=== PATIENT | female | born 1965 | race Caucasian/White ===

== ENCOUNTER → 2017-03-07 | Outpatient (CLI) | payer OTHER ==
[~2017-03-07] MED LIST: ASPIRIN81 M2 PO; BLOOD GLUCOSE1 EAC1 MC; FLEXERIL10 MG PO; GLUCOTROL XL10 MG PO; HYDROCODON-ACE1 EAC7 PO; IBUPROFEN800 MG PO; LEVAQUIN PO; NEURONTIN300 MG PO; PANTOPRAZOLE SO40 MG PO; SYNTHROID0.05 MG; TRAMADOL HCL50 M2 PO
--- NOTE | ~2017-03-07 | CT57 ---
[facility] A Service of [facility] & [facility] RADIOLOGY TEXT RESULTS PATIENT: HANG EPPERSON LOCATION: [facility] : 65 UNIT #: [id number] AGE: [address]: Carla Nixon APRN SEX: F ORDER DR: [id number] [facility] [address] [place], [place] [address] [id number] O MR#: [id number] Acc #: [id number] NAME: HANG EPPERSON : 1965 SEX: F STUDY DATE/TIME: 03/07/2017 15:14 UNIT: [facility] ROOM: STUDY DESCRIPTION: CT Chest Wo Cont Attending Physician: Carla Nixon A.P.R.N. Referring Physician: Carla Nixon A.P.R.N. Ordering Physician: Carla Nixon A.P.R.N. Primary Care Physician: Tyler Hampton M.D. MEDICAL IMAGING REPORT This report is preliminary unless electronic signature is present EXAM High-resolution CT chest without contrast, 03/07/2017. HISTORY 51-year-old female with restrictive lung disease per referring physician history. Patient states shortness of breath for 2 months with cough. 1-1/2 pack per day smoking history. Diabetes. COMPARISON CT chest with contrast 10/14/2016. CT chest 02/27/2006. PA and lateral chest radiograph 10/14/2016. PROCEDURE 1 mm axial images were obtained at 10 mm increments through the chest without contrast, per high-resolution protocol. Prone imaging was performed through the lung bases. Expiratory phase imaging was obtained through the level of the arch, luli, and bases. Additional 5-mm helical images were obtained to account for respiratory motion degradation. Physician's history makes additional notation of history of adenopathy. This CT exam was performed with one or more of the following radiation dose reduction techniques: automatic exposure control, adjustment of mA and/or kV according to patient size, and iterative reconstruction. FINDINGS Right paramediastinal-right hilar soft tissue mass continues to enlarge. On today's examination, it measures 6.9 x 3.7 cm in the right mid to lower paratracheal region, compared to 7.0 x 3.2 cm on 10/14/2016. In this same location on the 2005 examination, a single enlarged paramediastinal lymph node measured about 2.0 x 1.1 cm. Right hilar mass or adenopathy today measures 3.7 x 2.9 cm compared to 3.0 x 2.5 cm on 10/14/2016. This mass encases the right upper lobe bronchus and bronchus intermedius, although the bronchi are not occluded. It creates mild mass effect upon the adjacent esophagus and trachea. The mass elevates the superior vena cava. [facility] A Service of [facility] RADIOLOGY TEXT RESULTS PATIENT: HANG EPPERSON LOCATION: [facility] : 65 UNIT #: [id number] AGE: [address]: Carla Nixon APRN SEX: F ORDER DR: It abuts the aortic arch. It extends anteriorly and slightly to the left of midline across the luli, and extends into the azygoesophageal recess abutting the esophagus. On today's examination, the azygoesophageal recess portion of the mass measures 2.9 x 2.4 cm, compared to 1.7 x 1.5 cm. Findings are consistent with malignancy until proven otherwise. There is an enlarged right supraclavicular lymph node measuring 2.2 x 3.6 cm. No axillary adenopathy is seen. High resolution images of the chest demonstrate no abnormal interstitial thickening or evidence of interstitial fibrosis. No evidence of air trapping on expiratory phase imaging. Diffuse hepatic steatosis. Nodular contour of the liver anteriorly consistent with the appearance of cirrhosis in the appropriate clinical context. Multiple gallstones without pericholecystic inflammation or biliary dilation. There are small right anterior cardiophrenic fat pad lymph nodes, the dominant measuring 7 x 10 mm, unchanged. Spleen remains enlarged, but probably stable at 15.8 cm. Adrenal glands normal. At approximately the T8-9 level, there is a slightly high density nodule projecting in the left paracentral region in the anterior thecal sac. It is thought most likely to represent a chronic partially calcified disc protrusion and it can be seen retrospectively on the 02/27/2006 CT chest. IMPRESSION 1. Right hilar-right paramediastinal mass encasing the right mainstem bronchus and right upper lobe bronchus and bronchus intermedius. The finding is consistent with the appearance of malignancy. Interval enlargement in comparison to both the 02/27/2006 and 10/14/2016 examinations. Transbronchial biopsy is recommended. 2. Important finding was called to the mortgage assistant working for Karen Nixon, nurse practitioner, prior to the time of this dictation, 03/07/2017 at 01:16 p.m. 3. Right supraclavicular bulky adenopathy consistent with duy metastatic disease. 4. No contralateral left lung nodules are identified. 5. Advanced cirrhotic liver morphology. Correlate clinically. 6. Stable splenomegaly. 7. Uncomplicated cholelithiasis. 8. Punctate nonobstructing left renal stone, not included in the body of the report. 9. Suspected chronic partially calcified disc protrusion at T8-9. No acute osseous abnormalities are identified. Dictated by... [facility]. [facility] A Service of [facility] RADIOLOGY TEXT RESULTS PATIENT: HANG EPPERSON LOCATION: [facility] : 65 UNIT #: [id number] AGE: [address]: Carla Nixon APRN SEX: F ORDER DR: Henna Melendez M.D. THIS IS AN ELECTRONICALLY VERIFIED REPORT Henna Melendez M.D. at 03/09/2017 7:04 AM MAGAN/judy TD: 03/08/2017 14:11 JOB #: [id number] MEDICAL IMAGING REPORT Page 1 of 1 COPY
== END | disposition home or self-care (01) ==
LOC: CCAT 14:45
DX: J98.4 Other disorders of lung (principal); R59.9 Enlarged lymph nodes, unspecified; R16.1 Splenomegaly, not elsewhere classified; K74.60 Unspecified cirrhosis of liver; K80.20 Calculus of gallbladder without cholecystitis without obstruction; N20.0 Calculus of kidney
CPT/HCPCS: 71250

== ENCOUNTER → 2017-03-15 | Day surgery (SDC) | payer OTHER ==
--- NOTE | ~2017-03-15 | OR ---
Unit #: [id number] #: [id number] Patient: HANG EPPERSON [id number] [address] [place], [place] [address] [id number] O MR#: [id number] NAME: HANG EPPERSON ROOM: Date of Procedure: 03/15/2017 Admission Date: 03/15/2017 Surgeon: Maldonado Maria M.D. : 1965 Attending Physician: Maldonado Maria M.D. Primary Care Physician: Tyler Hampton M.D. OPERATIVE REPORT PROCEDURE PERFORMED Flexible fiberoptic bronchoscopy. INDICATION FOR PROCEDURE Abnormal CAT scan with bulky adenopathy. FINDINGS Widened main luli, widened right upper lobe luli, but no definite endobronchial lesions seen. SEDATION MAC. Please see their notes for details. COMPLICATIONS Zero. CONDITION AFTER PROCEDURE Stable to recovery room. DESCRIPTION OF PROCEDURE The patient was brought to the endoscopy suite and monitored for heart rate, blood pressure, saturations, and end-tidal CO2. She was sedated with MAC. Anesthetized with 2% lidocaine in both nares, viscous lidocaine to both nares. Bronchoscope was introduced into her right naris without difficulty. Vocal cords were visualized. They were normal in configuration and motion, and anesthetized x2. Main trachea was intubated. Airways were anesthetized and visualized. All subsegments were identified. No endobronchial lesions were seen. She had widened main luli, markedly widened right upper lobe main luli. No definite endobronchial lesions were seen. She had transtracheal needle biopsy of her main luli x2. No core biopsy was obtained, but apparent good cytologic specimens were obtained and will be sent for evaluation. If negative, she may need bronchoscopy with EBUS. The bronchoscope was removed without difficulty, hemostasis was confirmed by observation. The patient was in good condition postprocedure. Dictated by... Maldonado Maria M.D. LUIS/brettl Unit #: [id number] #: [id number] Patient: HANG EPPERSON TD: 03/16/2017 02:44 JOB #: [id number] OPERATIVE REPORT Page 1 of 1 X Maldonado Maria MD PROCEDURE OPERATIVE NOTE
[2017-03-15 09:26] LABS: BASOPHIL# 0.1 X10e3 (0-0.3); BASOPHIL% 0.7 % (0-2.5); EOSINOPHIL# 0.1 X10e3 (0-0.7); EOSINOPHIL% 1.7 % (0.0-7.0); HEMATOCRIT 41.5 % (35.0-45.0); HEMOGLOBIN 14.2 gm/dL (12.0-16.0); LYMPHOCYTE# 1.9 X10e3 (1.0-3.5); LYMPHOCYTE% 25.2 % (17.0-45.0); MEAN CELL VOLUME 93.9 FL (83-96); MEAN CORPUSCULAR HEMOGLOBIN 32.2 PG (28-34); MEAN CORPUSCULAR HGB CONC 34.3 g/dL (30-36); MONOCYTE# 0.5 X10e3 (0-1.0); MONOCYTE% 7.1 % (3.0-12.0); NEUTROPHIL# 4.9 X10e3 (1.5-7.1); NEUTROPHIL% 65.3 % (40-75); PLATELET COUNT 175 X10e3 (140-420); RED BLOOD COUNT 4.42 X10e (3.90-5.30); RED CELL DISTRIBUTION WIDTH 12.6 % (11.0-15.5); WHITE BLOOD COUNT 7.5 X10e3 (4.0-10.5)
[2017-03-15 09:27] LABS: DIFF IND NO
[2017-03-15 09:43] LABS: INR 1.1; PROTHROMBIN TIME (PATIENT) 11.5 SECONDS (9.6-11.5)
== END | disposition home or self-care (01) ==
LOC: COPS 08:35
PROVIDERS: Internal Medicine
DX: R59.0 Localized enlarged lymph nodes (principal); R91.8 Other nonspecific abnormal finding of lung field; K21.9 Gastro-esophageal reflux disease without esophagitis; E11.9 Type 2 diabetes mellitus without complications; E66.9 Obesity, unspecified; F17.210 Nicotine dependence, cigarettes, uncomplicated; Z87.442 Personal history of urinary calculi; Z87.19 Personal history of other diseases of the digestive system; Z90.49 Acquired absence of other specified parts of digestive tract; Z90.89 Acquired absence of other organs; Z79.82 Long term (current) use of aspirin; Z79.899 Other long term (current) drug therapy
CPT/HCPCS: 85025; 85610; 85730; 87102; 87106; 87107; 87116; 87206; 88108; 88173; 88305; J0171; J2250

== ENCOUNTER → 2017-04-14 | Outpatient (CLI) | payer OTHER ==
--- NOTE | ~2017-04-14 | MR17 ---
[facility] A Service of [facility] RADIOLOGY TEXT RESULTS PATIENT: HANG EPPERSON LOCATION: [facility] : 65 UNIT #: [id number] AGE: [address]: Mell Gray MD SEX: F ORDER DR: [id number] [address] [address] [id number] O MR#: [id number] Acc #: [id number] NAME: HANG EPPERSON : 1965 SEX: F STUDY DATE/TIME: 04/14/2017 17:11 UNIT: [facility] ROOM: STUDY DESCRIPTION: MR Brain WWo Contrast Attending Physician: Mell Gray M.D., Ph.D. Referring Physician: Mell Gray M.D., Ph.D. Ordering Physician: Mell Gray M.D., Ph.D. Primary Care Physician: Tyler Hampton M.D. MRI CENTER REPORT This report is preliminary unless electronic signature is present. EXAM Brain MRI with and without contrast HISTORY Newly diagnosed lung cancer. Evaluate for brain malignancy suspected. TECHNIQUE Multiplanar imaging brain was performed with and without contrast. 20 mL of MultiHance was used. FINDINGS Diffusion-weighted images show no evidence of recent infarct. The routine brain images demonstrate atrophy with mild chronic ischemic changes in the periventricular deep white matter. Mild chronic ischemic changes are also seen in the mid delvin. Postcontrast imaging shows a 5 mm ring enhancing mass in the left frontal subcortex consistent with a metastatic lesion. There is no significant surrounding vasogenic edema. There is a punctate focus of enhancement in the right precentral gyrus, also consistent with metastasis. No other enhancing masses are seen. IMPRESSION 1. There are 2 enhancing lesions seen, both suspicious for metastatic disease, 1 in the left frontal subcortex and the other in the right frontal pre-central region, as described and measured above. 2. Atrophy with mild chronic ischemic changes around the ventricles and in the mid delvin. Dictated by... Carlos Rangel M.D. [facility] A Service of [facility] RADIOLOGY TEXT RESULTS PATIENT: HANG EPPERSON LOCATION: [facility] : 65 UNIT #: [id number] AGE: [address]: Mell Gray MD SEX: F ORDER DR: THIS IS AN ELECTRONICALLY VERIFIED REPORT Carlos Rangel M.D. at 04/15/2017 11:28 AM RLAntonieta/gabriela TD: 04/15/2017 09:58 JOB #: [id number] MRI CENTER REPORT Page 1 of 1
== END | disposition home or self-care (01) ==
LOC: SMRI 15:52
DX: C34.11 Malignant neoplasm of upper lobe, right bronchus or lung (principal); D64.9 Anemia, unspecified; G31.9 Degenerative disease of nervous system, unspecified
CPT/HCPCS: 70553; A9581

== ENCOUNTER → 2017-04-20 | Outpatient (CLI) | payer OTHER ==
--- NOTE | ~2017-04-20 | XA91 ---
[facility] A Service of [facility] & [facility] RADIOLOGY TEXT RESULTS PATIENT: HANG GEE LOCATION: [facility] : 65 UNIT #: [id number] AGE: [address]: Mell Gray MD SEX: F ORDER DR: [id number] [facility] [address] [place], [place] [address] [id number] O MR#: [id number] Acc #: [id number] NAME: HANG GEE : 1965 SEX: F STUDY DATE/TIME: 04/20/2017 8:15 UNIT: [facility] ROOM: STUDY DESCRIPTION: XA CVC Tunneled W Port Attending Physician: Mell Gray M.D., Ph.D. Referring Physician: Mell Gray M.D., Ph.D. Ordering Physician: Mell Gray M.D., Ph.D. Primary Care Physician: Tyler Hampton M.D. MEDICAL IMAGING REPORT This report is preliminary unless electronic signature is present EXAM MediPort placement under ultrasound and fluoroscopy HISTORY Lung cancer FINDINGS Procedure, attendant risks and options were discussed at length with Ms. Gee. She understands and wishes to proceed. Informed written consent was obtained. The patient was placed in the supine position in the angio suite. Right neck and right anterior chest wall was prepped with Chlorhexidine solution and subsequently sterilely draped. IV conscious sedation was administered consisting of IV Versed and Fentanyl. The patient was monitored by the IR nurse during the entire procedure. Initially the right IJ was addressed. Utilizing maximal sterile barrier technique and under ultrasound visualization and guidance and local anesthesia a micropuncture was performed and subsequently an 8 Uzbek delivery sheath was placed. Attention was then turned to the right anterior chest wall. A site was chosen. A horizontal incision was made approximately two finger breadths below the clavicle. A pocket was mildly dilated and subsequently flushed with saline. MediPort was sutured into the pocket utilizing 2-0 Vicryl suture. Catheter was tunneled to the right IJ site and subsequently trimmed to the appropriate length and deployed with the tip at the cavoatrial junction. The port was subsequently aspirated yielding blood and it was flushed with heparin solution. The subcutaneous tissues were closed with 3-0 Vicryl interrupted suture and the dermis closed with 4-0 mattress Monocryl suture. Dermabond was placed over each site. Final spot radiograph was obtained documenting placement. Permanent ultrasound image was also recorded. Total fluoroscopy time was 1.1 minute. Total estimated exposure 34 mGy air kerma standard. SUMMARY [facility] A Service of [facility] RADIOLOGY TEXT RESULTS PATIENT: HANG GEE LOCATION: [facility] : 65 UNIT #: [id number] AGE: [address]: Mell Gray MD SEX: F ORDER DR: Successful right-sided MediPort placed with the tip placed at the cavoatrial junction. Dictated by... Gaetano Gonzalez M.D. THIS IS AN ELECTRONICALLY VERIFIED REPORT Gaetano Gonzalez M.D. at 04/21/2017 4:26 PM ANA/wilfred TD: 04/20/2017 12:35 JOB #: [id number] MEDICAL IMAGING REPORT Page 1 of 1 COPY
[2017-04-20 07:29] LABS: HEMATOCRIT 43.8 % (35.0-45.0); HEMOGLOBIN 14.5 gm/dL (12.0-16.0); MEAN CELL VOLUME 96.5 FL (83-96); MEAN CORPUSCULAR HGB CONC 33.2 g/dL (30-36); MEAN PLATELET VOLUME 7.3 FL (6.5-11.5); RED BLOOD COUNT 4.53 X10e (3.90-5.30); RED CELL DISTRIBUTION WIDTH 12.7 % (11.0-15.5); WHITE BLOOD COUNT 7.9 X10e3 (4.0-10.5)
[2017-04-20 07:43] LABS: INR 1.1; PARTIAL THROMBOPLASTIN TIME 29.1 SECONDS (23.5-31.3); PROTHROMBIN TIME (PATIENT) 11.1 SECONDS (9.6-11.5)
== END | disposition home or self-care (01) ==
LOC: CIVR 07:00
PROVIDERS: Internal Medicine Hematology & Oncology
DX: Z45.2 Encounter for adjustment and management of vascular access device (principal); D64.9 Anemia, unspecified; C34.11 Malignant neoplasm of upper lobe, right bronchus or lung; F17.210 Nicotine dependence, cigarettes, uncomplicated; R94.2 Abnormal results of pulmonary function studies; E11.9 Type 2 diabetes mellitus without complications; Z79.84 Long term (current) use of oral hypoglycemic drugs; E66.9 Obesity, unspecified; Z68.42 Body mass index [BMI] 45.0-49.9, adult; R06.83 Snoring; Z79.899 Other long term (current) drug therapy
CPT/HCPCS: 36415; 76937; 77001; 85027; 85610; 85730; C1788; C1894; J0690; J1642; J2250; J3010

== ENCOUNTER 2017-05-18 21:11 | Inpatient (IN) | payer OTHER ==
--- NOTE | ~2017-05-18 | CR72 ---
[facility] A Service of [facility] & [facility] RADIOLOGY TEXT RESULTS PATIENT: HANG EPPERSON LOCATION: [facility] 327- : [birth year] UNIT #: [id number] AGE: [address]: Theodora Nickerson MD SEX: F ORDER DR: [id number] [facility] [place] [facility] [address] [place], [place] [address] [id number] I MR#: [id number] Acc #: [id number] NAME: HANG EPPERSON : 1965 SEX: F STUDY DATE/TIME: 05/18/2017 22:52 [facility] ROOM: [facility] STUDY DESCRIPTION: CR Chest Single View Portable Attending Physician: Gabby Strong M.D. Ordering Physician: Onel Sims D.O. Primary Care Physician: No Primary Care Physician MEDICAL IMAGING REPORT This report is preliminary unless electronic signature is present EXAM Chest portable, 05/18 at 2252 hours. INDICATIONS Shortness of air, cough and nausea for 3 days. History of lung cancer. FINDINGS AP portable chest is compared with 10/14/2016. Right side Port-A-Cath tip in the SVC. Again seen is extensive right paratracheal adenopathy. The lungs are clear. No pneumothorax. IMPRESSION Right paratracheal adenopathy consistent with the patient's known malignancy. No acute findings in the chest. Port-A-Cath tip in the SVC. Dictated by... Carlos Monsivais Jr., M.D. THIS IS AN ELECTRONICALLY VERIFIED REPORT Carlos Monsivais Jr., M.D. at 05/19/2017 11:24 AM RODY/keaton TD: 05/19/2017 06:09 JOB #: [id number] MEDICAL IMAGING REPORT Page 1 of 1 COPY
--- NOTE | ~2017-05-18 | HP ---
Unit #: [id number] #: [id number] Patient: HANG EPPERSON [id number] [address] [place], [place] [address] [id number] I MR#: [id number] NAME: HANG EPPERSON ROOM: 327 Age: 51 Sex: F Admission Date: 05/19/2017 : 1965 Attending Physician: Gabby Strong M.D. Primary Care Physician: No Primary Care Physician HISTORY AND PHYSICAL CHIEF COMPLAINT Intractable nausea, vomiting, diarrhea, urinary tract infection. HISTORY This pleasant 51-year-old female with metastatic small cell lung cancer, hypothyroidism, AODM, VILLAFANA, was admitted for intractable nausea, vomiting, and diarrhea. The patient underwent her first cycle of chemotherapy two weeks ago. Was well until two days ago when she developed intractable nonbloody nausea, vomiting, diarrhea with fevers, sweats and chills. Denied urinary symptoms with the above. She presented to this emergency department last evening tachycardic but otherwise with stable vital signs. Labs are notable for a chronic hyponatremia, white blood count of 23, and significant pyuria on urinalysis. Patient was treated with Protonix, Zofran, and currently is being bolused with IV fluids, and given 1 g of Rocephin. PAST MEDICAL HISTORY 1. Hyponatremia admitted 09/2016. 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 2. Small cell lung cancer with metastatic lesions to the brain on MRI scan. First cycle of chemotherapy two weeks ago. 3. Hypothyroidism. 4. GERD. 5. AODM with peripheral neuropathy. 6. VILLAFANA. 7. EGD and colonoscopy revealing a small hiatal hernia with chronic gastritis. Polyp was removed from the colon and diverticular disease was noted. 8. Appendectomy. 9. Back surgery. 10. Cyst removed from the right wrist. ALLERGIES No known drug allergies. HOME MEDICATIONS Glucotrol XL 10 mg daily; Protonix 40 mg daily; Neurontin 300 mg t.i.d.; aspirin 81 mg daily; ibuprofen 800 mg p.r.n.; Flexeril 10 mg b.i.d. p.r.n.; [place] 5/325 q.8 hours as needed; Synthroid 0.05 mg daily. FAMILY HISTORY Diabetes mellitus. Unit #: [id number] #: [id number] Patient: HANG EPPERSON SOCIAL HISTORY The patient lives with her girlfriend. She smokes 1/2 pack per day of tobacco and does not drink alcohol. REVIEW OF SYSTEMS Notable for nausea, vomiting, diarrhea. Fever, sweats and chills. Metastatic small cell lung cancer, hypothyroidism, GERD, diabetes, neuropathy, VILLAFANA, tobacco use and above mentioned surgeries. All other systems were reviewed and are otherwise negative. PHYSICAL EXAMINATION GENERAL: Pleasant, obese, 51-year-old female who looks to be uncomfortable. VITAL SIGNS: Temperature 98.6 pulse 121, respirations 18, blood pressure 112/72, O2 saturation 98% on room air. HEENT: Eyes - PERRLA, extraocular muscles are intact. Pharynx is benign with poor dentition. NECK: Supple without adenopathy or thyromegaly. CHEST: Clear. CARDIAC: Normal S1 and S2 without S3, S4, or murmur. ABDOMEN: Bowel sounds are present. No hepatosplenomegaly, tenderness or masses. EXTREMITIES: Without clubbing, cyanosis or edema. NEUROLOGIC: Patient is awake, alert and oriented. Cranial nerves are intact. Equal strength throughout. DIAGNOSTIC STUDIES LABORATORY STUDIES: Hematocrit is 44.3, white blood count is 23.9, normal platelet count, 7 bands noted, coags normal. SMA 12 - glucose 236, sodium 128, chloride 94, alk phos 121, normal lipase, negative troponin, lactic acid normal. Urinalysis - positive leukocyte esterase and protein with 2-5 red cells, enumerable white cells, 3+ bacteria, moderate squamous cells seen. IMAGING STUDIES: Chest x-ray adenopathy, which was noted to before. ASSESSMENT 1. Intractable nausea, vomiting and diarrhea. 2. Urinary tract infection. 3. Hyponatremia likely related to SIADH as opposed to hypovolemic, hyponatremia. 4. Small cell lung cancer with metastatic lesions to brain. 5. First cycle of chemotherapy was two weeks ago. 6. VILLAFANA. 7. AODM. 8. Hypothyroidism. 9. GERD. PLANS 1. Rocephin and recollect urine via straight cath as patient did have moderate squamous cells. 2. Stool cultures. 3. IV fluids and supportive treatment. 4. DVT prophylaxis. 5. Sliding scale insulin. 6. Notify patient's oncologist of admission. Unit #: [id number] #: [id number] Patient: HANG EPPERSON Dictated by Gabby Strong M.D. AML/ts TD: 05/19/2017 05:52 JOB #: [id number] CC: Mell Gray M.D., Ph.D. HISTORY AND PHYSICAL Page 1 of 1 X Gabby Strong MD X HISTORY AND PHYSICAL
--- NOTE | ~2017-05-18 | CO ---
Unit #: [id number] #: [id number] Patient: HANG EPPERSON [id number] [address] [address] [id number] I MR#: [id number] NAME: HANG EPPERSON ROOM: 327 Age: 51 Sex: F Admission Date: 05/19/2017 : 1965 Attending Physician: Theodora Nickerson M.D. Primary Care Physician: No Primary Care Physician CONSULTATION REPORT CHIEF COMPLAINT Cmhsr-suuf-ijfl cancer, RESIDENTIAL PROGRAM COORDINATOR mets, came with nausea and vomiting. HISTORY OF PRESENT ILLNESS This is a 51-year-old female who started smoking at the age of 18. She has been smoking about a half pack per day for almost 30 years. The patient also weighs about 130 kg. The patient was recently diagnosed with yyiis-abwa-estv cancer by Dr. Maria. I reviewed her PET scan done on 04/15/2017. There is a mediastinal mass, hilar mass, abdominal mass, right rectus muscle. There is also cirrhosis of the liver. MRI of the brain on 04/14/2017 showed left frontal mass and right frontal mass. The patient first received SBRT of her RESIDENTIAL PROGRAM COORDINATOR mass. She received one cycle of SPEECH AND LANGUAGE SPECIALIST 16 carboplatin. The patient came to the hospital with nausea and vomiting. The patient has suspected urinary tract infection and is receiving Rocephin. Presently she has a fever of 102. She is somewhat short of breath. PAST MEDICAL HISTORY 1. Hwmqf-sdcc-guix cancer with RESIDENTIAL PROGRAM COORDINATOR mets, status post radiation, now chemo. 2. Chronic obstructive pulmonary disease. 3. Cirrhosis of the liver. 4. Obesity. SURGICAL HISTORY 1. Back surgery. 2. Tonsillectomy. 3. Appendectomy. SOCIAL HISTORY As mentioned above. The patient has been smoking a half pack per day for 30 years. Denies alcohol abuse. She is on disability. FAMILY HISTORY Father of whdpz-klee-xqab cancer at the age of 63. He was a smoker. ALLERGIES Unit #: [id number] #: [id number] Patient: HANG EPPERSON No known drug allergies. Current medications 1. Rocephin. 2. Aspirin. 3. Protonix. 4. Lovenox. 5. Insulin. 6. Synthroid. 7. Neurontin. 8. Flexeril. 9. Zofran. REVIEW OF SYSTEMS CONSTITUTIONAL: Fever. No chills, no sweats, no weight loss. EYES: No visual symptoms. EARS, NOSE AND THROAT: There is no runny nose or sore throat or difficulty hearing. CARDIOVASCULAR: No chest pain. Shortness of breath. No palpitations. No orthopnea. No PND. RESPIRATORY: No cough. No wheezing. No hemoptysis. GASTROINTESTINAL: As mentioned above. GENITOURINARY: No urinary frequency, hesitancy or urgency. No blood in the urine. MUSCULOSKELETAL: No muscle or joint pain. NEUROLOGIC: No headache. No numbness or tingling. No weakness. No seizure. PSYCHIATRIC: No anxiety, depression or mood disturbance. ENDOCRINE: No excessive urination or thirst. DERMATOLOGIC: No rash or change in the skin. ALLERGIC/IMMUNOLOGIC: No symptoms. HEMATOLOGIC/LYMPHATIC: Denies any symptoms. PHYSICAL EXAMINATION GENERAL: Patient is comfortable. ECOG is 0. The patient is pleasant. VITAL SIGNS: Blood pressure 148/88, temperature 102.2, pulse 110, respiratory rate 20, O2 saturation 95% on 2 liters. HEENT: Moist mucosa. Pupils equally reactive to light. Extraocular muscles intact. Sclerae anicteric. No obvious bleeding from nasal mucosa or oral mucosa. Scalp normal. Hearing normal. NECK: No JVD. No lymphadenopathy. LYMPHATIC/HEMATOLOGIC: There is no palpable adenopathy in the neck, axilla or inguinal area. CARDIOVASCULAR: S1, S2. Regular rate and rhythm. No S3 or S4. RESPIRATORY: Chest symmetrical, normal. Clear to auscultation bilaterally. Occasional wheezes. No rales, no rhonchi. No dullness to percussion. ABDOMEN/GASTROINTESTINAL: Abdomen is soft, nontender, nondistended. No hepatosplenomegaly. EXTREMITIES: There is no clubbing, no cyanosis, no edema. No varicose veins. NEUROLOGICAL: Patient is alert, awake and oriented x3. Cranial nerves II-XII are intact. Sensory grossly intact. Motor is 4/5 in all four extremities. Gait is normal. Station is normal. Language is normal. Memory is normal. DTRs +2 in all four extremities. MUSCULOSKELETAL: No joint swelling. No bony tenderness. No muscle tenderness. SKIN: No petechiae, no rash, no ecchymosis. Unit #: [id number] #: [id number] Patient: HANG EPPERSON PSYCHIATRIC: No anxiety. No delusions or hallucinations. There is no agitation. Eye contact is normal. Affect is appropriate. There is no flight of ideas. DIAGNOSTIC DATA IMAGING: Single view chest on 05/18/2017, right paratracheal adenopathy consistent with the patient's known malignancy. No acute findings. LABORATORY: White blood cell count 22.9, hemoglobin 14.2, platelets 130, creatinine 0.9, LFTs are normal. ASSESSMENT This is a 51-year-old female with the followin. Cniuc-laat-gxml cancer. The patient has extensive hognt-dtek-ndbj cancer. She has also metastatic disease in the brain. She has bilateral lesions. She received radiation. She is receiving SPEECH AND LANGUAGE SPECIALIST 16 carboplatin. Once acute condition resolves, then she will proceed with the second cycle sometime next week. 2. Fever. Her fever is 102.2. I will get blood culture, start the patient on vancomycin and cefepime. I have already spoken with Dr. Maria. 3. Thrombocytopenia. It is mild and we will observe. Dictated by... Cain Gray M.D. MAGGY/doretha TD: 05/19/2017 08:50 JOB #: [id number] CONSULTATION REPORT Page 1 of 1 X Cain Gray MD CONSULTATION REPORT
--- NOTE | ~2017-05-18 | BMI ---
[facility] Nutrition Therapy DATE: 05/19/17 Patient: HANG LACEY ZHOU Physician: DELANEY Address: [address] [facility] Room/Bed: [address] [place] [address], Zip: [place] [address] Admit Date: 05/19/17 Date of : [birth year] Height: 5 6 Weight: 287 130.4 HIGH BMI NOTE: ANTHROPOMETRICS: HT: 66" WT: 130.4 KG BMI: 46.4 DIET: CONSISTENT CARBOHYDRATE RECOMMENDATIONS: 1. ADD A HEART HEALTHY DIET RESTRICTION IN ORDER TO PROMOTE GRADUAL WEIGHT LOSS TOWARDS A HEALTHY BMI. Respectfully, LUIS ROY RD, LD Food and Nutritional Services [facility] cc: client file
--- NOTE | ~2017-05-18 | CO ---
Unit #: [id number] #: [id number] Patient: HANG EPPERSON [id number] [address] [place], [place] [address] [id number] I MR#: [id number] NAME: HANG EPPERSON ROOM: 327 Age: 51 Sex: F Admission Date: 05/19/2017 : 1965 Attending Physician: Theodora Nickerson M.D. Consultation Date: 05/19/2017 CONSULTATION REPORT REASON FOR CONSULTATION Shortness of breath and fever. HISTORY OF PRESENT ILLNESS A 51-year-old female, known to me from the hospital and office. She had a CT scan with stable adenopathy from 2005. Then, she was noted to have an increased area that was masslike and she underwent bronchoscopy that revealed small cell carcinoma. She has been further evaluated and apparently has brain mets. She has undergone treatment. Chemotherapy was approximately 2 weeks ago. She developed nausea, vomiting, diarrhea and was admitted to the hospital for hydration. She apparently was having fevers at home as well. Urine currently suggests urinary tract infection and culture is pending. She has occasional shortness of breath, occasional wheeze and she will use p.r.n. albuterol, which does help, but she uses that rarely. She may wheeze somewhat on a nightly basis. She denies mucopurulent sputum production, pleurisy, or hemoptysis. PAST MEDICAL HISTORY Remarkable for small cell carcinoma of the lung, metastatic; history of diabetes; hypothyroidism; obesity and [place]. MEDICATIONS At home albuterol as needed. She is also on Glucotrol, Protonix, Neurontin, aspirin, ibuprofen, Flexeril, [place], Synthroid. ALLERGIES No known medical allergies. SOCIAL HISTORY She continues to smoke, but she says "I've cut down to half pack of cigarettes a day." FAMILY HISTORY Diabetes. REVIEW OF SYSTEMS As above and there has been no hematemesis, melena, hematochezia, hematuria, dysuria. She denies any burning with urination. No leg pain, swelling, focal weakness, paresthesias, chest pain, or palpitations. Further review of systems negative. PHYSICAL EXAMINATION GENERAL: Reveals patient who is in no acute distress. Unit #: [id number] #: [id number] Patient: HANG EPPERSON VITAL SIGNS: She is febrile with a temperature of 102.2, pulse is 128, respiratory rate is 24, blood pressure is 132/97, 5 feet 6 inches, 287 pounds, BMI is 46. HEENT: Pupils are equal, round, and reactive to light. Sclerae anicteric. Head atraumatic. NECK: Supple. No supraclavicular or cervical adenopathy appreciated. CHEST: Remarkably clear. No wheeze, stridor, or consolidation. CARDIAC: Reveals regular rate and rhythm. No murmur, rub, or gallop. ABDOMEN: Obese, soft, and nontender. No hepatomegaly. No rebound. EXTREMITIES: Reveal no clubbing, cyanosis, or edema. No calf tenderness. SKIN: Warm and dry without rash or diaphoresis. NEUROLOGIC: Grossly intact. No focal, motor or sensory deficits. DIAGNOSTIC STUDIES LABORATORY RESULTS: Urinalysis consistent with UTI. BUN is 10, creatinine 0.9. Lactic acid 1.7. INR normal. White blood cell count 22.9, hemoglobin 14, platelet count 130. Blood cultures have been ordered, but not yet performed. Urine is pending. IMAGING STUDIES: Chest x-ray, no acute disease. IMPRESSION 1. Fever, most likely secondary to urinary tract infection. 2. Metastatic small cell carcinoma of the lung. 3. Tobacco use, occasional wheeze, possible airways disease. 4. Nausea, vomiting, diarrhea, likely secondary to chemotherapy. 5. Obesity, fatty liver, possible cirrhosis. 6. Diabetes, hypothyroidism, etc. PLAN I will add inhaled corticosteroids, long-acting beta agonist. I will provide albuterol on an as-needed basis. From a pulmonary point of view, I doubt any further workup will be needed. Antibiotics have been started for urinary tract infections, obviously followup cultures and adjust as needed. Dictated by... Cindy Roberson/verna TD: 05/20/2017 02:58 JOB #: [id number] CC: Tyler Hampton M.D. CONSULTATION REPORT Page 1 of 1 X Maldonado Maria MD X CONSULTATION REPORT
--- NOTE | ~2017-05-18 | DS ---
Unit #: [id number] #: [id number] Patient: HANG EPPERSON [id number] [address] [address] [id number] I MR#: [id number] NAME: HANG EPPERSON ROOM: 327 Age: 51 Sex: F Admission Date: 05/19/2017 : 1965 Discharge Date: 05/20/2017 Attending Physician: Theodora Nickerson M.D. Primary Care Physician: No Primary Care Physician DISCHARGE SUMMARY ADMISSION DIAGNOSES 1. Intractable nausea and vomiting. 2. Urinary tract infection. 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 She was admitted and treated with Rocephin 1 gram IV daily and Zofran and IV fluids. Her nausea and vomiting has resolved. Her urine culture showed gram-negative rods; sensitivities are still pending. The patient is afebrile now. Her white cell count is still 23,000, which is secondary to the neutrophil growth factor the patient received. The patient is stable at this time to be discharged home. CONDITION AT DISCHARGE Stable. MEDICATIONS AT DISCHARGE 1. Levaquin 500 mg daily for 7 days. 2. Gabapentin 300 mg t.i.d. 3. Aspirin 81 mg daily. 4. Ibuprofen 800 mg p.o. q.8 as needed. 5. Hydrocodone 5/325 mg 1 tablet q.8. 6. Pantoprazole 40 mg daily. 7. Flexeril 10 mg b.i.d. 8. Glipizide 10 mg p.o. daily in the evening. 9. Levothyroxine 50 mcg daily. FOLLOWUP Follow with hematology/oncology and primary care physician. NOTE: The patient has chronic hyponatremia, which has been stable. Her sodium has been stable. Will be followed as an outpatient by primary care physician and hematology/oncology. Dictated by... Cindy Cummings/alondra Unit #: [id number] #: [id number] Patient: HANG EPPERSON TD: 05/21/2017 12:38 JOB #: [id number] DISCHARGE SUMMARY Page 1 of 1 X Samantha Quick MD DISCHARGE SUMMARY
[2017-05-18 22:31] LABS: BASOPHIL% 0.1 % (0-2.5); HEMATOCRIT 44.3 % (35.0-45.0); HEMOGLOBIN 15.1 gm/dL (12.0-16.0); LYMPHOCYTE# 1.4 X10e3 (1.0-3.5); LYMPHOCYTE% 5.8 % (17.0-45.0); MEAN CORPUSCULAR HEMOGLOBIN 31.6 PG (28-34); MEAN PLATELET VOLUME 7.6 FL (6.5-11.5); MONOCYTE# 2.2 X10e3 (0-1.0); MONOCYTE% 9.3 % (3.0-12.0); NEUTROPHIL# 20.3 X10e3 (1.5-7.1); NEUTROPHIL% 84.8 % (40-75); PLATELET COUNT 142 X10e3 (140-420); RED BLOOD COUNT 4.77 X10e (3.90-5.30); RED CELL DISTRIBUTION WIDTH 12.4 % (11.0-15.5); WHITE BLOOD COUNT 23.9 X10e3 (4.0-10.5)
[2017-05-18 22:33] LABS: DIFF IND YES
[2017-05-18 22:43] LABS: INR 1.2; PARTIAL THROMBOPLASTIN TIME 32.5 SECONDS (23.5-31.3); PROTHROMBIN TIME (PATIENT) 13.4 SECONDS (10.0-11.7)
[2017-05-18 22:58] LABS: ALBUMIN SERUM 3.7 g/dL (3.5-5.0); BILIRUBIN, DIRECT 0.2 mg/dL (0.0-0.2); BILIRUBIN,INDIRECT 0.5 mg/dL (0.0-0.9); BILIRUBIN,TOTAL 0.7 mg/dL (0.2-2.0); BUN/CREATININE RATIO 11.42; CALCIUM SERUM 8.9 mg/dL (8.4-10.2); CREATININE SERUM 0.7 mg/dL (0.6-1.4); GLOM FILT RATE Estimated 100.3 mL/min (>60); PLATELET ESTIMATE DECREASED (NORMAL); POTASSIUM 3.5 mmol/L (3.5-5.1); PROTEIN TOTAL SERUM 7.7 g/dL (6.0-8.3)
[2017-05-18 22:59] LABS: URINE SOURCE CLEAN CATCH
[2017-05-18 22:59] LABS: RBC NORMAL YES
[2017-05-18 23:10] LABS: URINE APPEARANCE TURBID; URINE BLOOD 1+ (NEG); URINE COLOR DK YELLOW; URINE GLUCOSE NEG (NEG); URINE KETONE TRACE (NEG); URINE LEUKOCYTE ESTERASE 3+ (NEG); URINE NITRATE NEG (NEG); URINE PROTEIN 2+ (NEG); URINE SPECIFIC GRAVITY 1.018 (1.003-1.035)
[2017-05-18 23:13] LABS: CULTURE INDICATED? YES; URINE BACTERIA AUWI 3+ (NEGATIVE); URINE SQUAMOUS EPITHELIAL CELL MOD /[HPF]; UWBCS1 AUWI INNUM (0-5)
[2017-05-18 23:16] LABS: URINE BILIRUBIN NEG (NEG)
[2017-05-19 05:32] LABS: BASOPHIL% 0.2 % (0-2.5); HEMATOCRIT 42.8 % (35.0-45.0); HEMOGLOBIN 14.2 gm/dL (12.0-16.0); LYMPHOCYTE# 1.5 X10e3 (1.0-3.5); LYMPHOCYTE% 6.5 % (17.0-45.0); MEAN CELL VOLUME 94.6 FL (83-96); MEAN CORPUSCULAR HEMOGLOBIN 31.4 PG (28-34); MEAN CORPUSCULAR HGB CONC 33.2 g/dL (30-36); MEAN PLATELET VOLUME 7.6 FL (6.5-11.5); MONOCYTE# 2.2 X10e3 (0-1.0); MONOCYTE% 9.7 % (3.0-12.0); NEUTROPHIL# 19.1 X10e3 (1.5-7.1); NEUTROPHIL% 83.6 % (40-75); PLATELET COUNT 130 X10e3 (140-420); RED BLOOD COUNT 4.53 X10e (3.90-5.30); RED CELL DISTRIBUTION WIDTH 12.5 % (11.0-15.5); WHITE BLOOD COUNT 22.9 X10e3 (4.0-10.5)
[2017-05-19 05:33] LABS: DIFF IND NO
[2017-05-19 06:13] LABS: BUN/CREATININE RATIO 11.11; CALCIUM SERUM 8.7 mg/dL (8.4-10.2); CREATININE SERUM 0.9 mg/dL (0.6-1.4); GLOM FILT RATE Estimated 74.1 mL/min (>60); POTASSIUM 4.1 mmol/L (3.5-5.1)
[2017-05-20 07:05] LABS: HEMATOCRIT 38.3 % (35.0-45.0); HEMOGLOBIN 12.9 gm/dL (12.0-16.0); MEAN CELL VOLUME 93.6 FL (83-96); MEAN CORPUSCULAR HEMOGLOBIN 31.5 PG (28-34); MEAN CORPUSCULAR HGB CONC 33.7 g/dL (30-36); MEAN PLATELET VOLUME 7.7 FL (6.5-11.5); RED BLOOD COUNT 4.09 X10e (3.90-5.30); RED CELL DISTRIBUTION WIDTH 12.5 % (11.0-15.5); WHITE BLOOD COUNT 23.4 X10e3 (4.0-10.5)
[2017-05-20 07:21] LABS: ALBUMIN SERUM 2.7 g/dL (3.5-5.0); BILIRUBIN,TOTAL 0.7 mg/dL (0.2-2.0); CALCIUM SERUM 7.9 mg/dL (8.4-10.2); CREATININE SERUM 0.8 mg/dL (0.6-1.4); GLOM FILT RATE Estimated 85.4 mL/min (>60); POTASSIUM 3.8 mmol/L (3.5-5.1); PROTEIN TOTAL SERUM 5.8 g/dL (6.0-8.3)
[2017-05-20 07:33] LABS: FERRITIN 1189 ng/mL (11-307)
[2017-05-20] MEDS ORDERED: LEVAQUIN PO (12:40)
== END 2017-05-20 14:45 | disposition home or self-care (01) | DRG 872 ==
LOC: CED 21:11 → CEDOF 05-19 01:15 → CED 05-19 01:22 → CEDOF 05-19 01:22 → C3A PCU 05-19 01:22 → CEDOF 05-19 03:40 → C3A PCU 05-19 03:40
PROVIDERS: Emergency Medicine; Internal Medicine; Internal Medicine Hematology
DX: A41.9 Sepsis, unspecified organism (principal); E11.42 Type 2 diabetes mellitus with diabetic polyneuropathy; C79.31 Secondary malignant neoplasm of brain; D69.6 Thrombocytopenia, unspecified; E22.2 Syndrome of inappropriate secretion of antidiuretic hormone; C34.90 Malignant neoplasm of unspecified part of unspecified bronchus or lung; Z68.42 Body mass index [BMI] 45.0-49.9, adult; N39.0 Urinary tract infection, site not specified; B96.89 Other specified bacterial agents as the cause of diseases classified elsewhere; Z79.84 Long term (current) use of oral hypoglycemic drugs; K75.81 Nonalcoholic steatohepatitis (NASH); E03.9 Hypothyroidism, unspecified; K21.9 Gastro-esophageal reflux disease without esophagitis; F17.210 Nicotine dependence, cigarettes, uncomplicated; R11.2 Nausea with vomiting, unspecified; T45.1X5A Adverse effect of antineoplastic and immunosuppressive drugs, initial encounter; Y92.9 Unspecified place or not applicable; R19.7 Diarrhea, unspecified; E66.01 Morbid (severe) obesity due to excess calories
CPT/HCPCS: 36415; 71010; 80048; 80053; 80076; 81003; 82607; 82728; 82947; 83540; 83550; 83605; 83690; 84484; 84703; 85025; 85027; 85610; 85730; 86850; 86900; 86901; 87040; 87086; 87088; 87186; 94640; 96361; 96374; 96375; 99285; C9113; J0692; J0696; J1650; J1815; J2405; J3370

== ENCOUNTER → 2017-06-01 | Outpatient (CLI) | payer OTHER ==
--- NOTE | ~2017-06-01 | CT5 ---
[facility] A Service of [facility] & [facility] RADIOLOGY TEXT RESULTS PATIENT: HANG EPPERSON LOCATION: CCAT : 65 UNIT #: [id number] AGE: [address]: Mell Gray MD SEX: F ORDER DR: [id number] [facility] [address] [place], [place] [address] [id number] O MR#: [id number] [facility] #: [id number] NAME: HANG EPPERSON : 1965 SEX: F STUDY DATE/TIME: 06/01/2017 7:33 UNIT: CCAT ROOM: STUDY DESCRIPTION: CT Abdomen W Cont Attending Physician: Mell Gray M.D., Ph.D. Referring Physician: Tyler Hampton M.D. Ordering Physician: Mell Gray M.D., Ph.D. Primary Care Physician: Tyler Hampton M.D. MEDICAL IMAGING REPORT This report is preliminary unless electronic signature is present EXAM CT abdomen with contrast 06/01/2017 HISTORY Anemia. Malignant neoplasm of upper lobe right bronchus or lungs. Prior history of back surgery, appendectomy, tonsillectomy, cyst removal right wrist, diabetes. Smokes 1 pack per day. Last chemotherapy 1 week ago, last radiation [address] of the abdomen performed with 100 mL Isovue-370 intravenously. Enteric contrast not administered. This CT exam was performed with one or more of the following radiation dose reduction techniques: automatic exposure control, adjustment of mA and/or kV according to patient size, and iterative reconstruction. COMPARISON STUDIES Comparison to CT images from CT/PET scan dated 04/17/2017. FINDINGS Please see today's dedicated CT of the chest for discussion of findings above diaphragm. Cirrhotic morphology of liver without suspicious focal hepatic parenchymal abnormality seen. Uncomplicated cholelithiasis. No ductal dilatation and no choledocholithiasis. The spleen is enlarged measuring approximately 16 cm in the AP diameter. Pancreas is unremarkable. Adrenal glands normal. Non-obstructing left upper pole right renal calculus stable. No acute renal findings. No perinephric inflammatory change. Previously seen, metabolically active on PET scan, 2.1 cm right para-aortic lymph node now measures 1.2 cm in greatest diameter. This likely reflects response to treatment. There is a portocaval node measuring up to about 3.1 cm in diameter, decreased from STS. [facility] A Service of [facility] & [facility] RADIOLOGY TEXT RESULTS PATIENT: HANG EPPERSON LOCATION: [facility] : 65 UNIT #: [id number] AGE: [address]: Mell Gray MD SEX: F ORDER DR: prior study when it measured 3.8 cm in diameter. The focus of PET tracer uptake seen in the moinka hepatis more anteriorly on prior CT/PET scan does not have a clear morphologic correlate on today's examination. Continued attention at followup recommended. The distal esophagus, stomach, visualized segments of small bowel and colon are unremarkable. The right paracentral rectus sheath soft tissue metastatic lesion seen on prior examination currently measures 1.2 cm in diameter, previously 2.3 cm in diameter. Extensive atherosclerotic arterial calcification. No aneurysm. Bony structures show no acute appearing abnormality. No aggressive bony lesion. IMPRESSION 1. Abdominal CT suggests response to interval treatment. A metabolically active node seen on CT/PET scan March 2017 right para-aortic region currently measures 1.2 cm in greatest diameter, previously 2.1 cm. A focus of metabolic activity at the monika hepatis, presumed to be duy in nature on prior examination, does not have a distinct morphologic correlate on today's examination. Continued surveillance at followup recommended. 2. Right paracentral rectus sheath metastatic soft tissue nodule decreased in size. Now 1.2 cm in diameter, previously 2.3 cm in diameter. 3. Uncomplicated cholelithiasis. 4. Cirrhotic morphology of the liver, unchanged. Splenomegaly, unchanged. 5. Stable punctate non-obstructing left upper pole renal calculus. See remainder of findings in body of report above. Dictated by... Gaetano Feliciano M.D. THIS IS AN ELECTRONICALLY VERIFIED REPORT Gaetano Feliciano M.D. at 06/02/2017 9:40 PM ADRIENNE/gabriela TD: 06/01/2017 20:52 JOB #: [id number] MEDICAL IMAGING REPORT Page 1 of 1 COPY
--- NOTE | ~2017-06-01 | CT55 ---
[facility] A Service of [facility] & [facility] RADIOLOGY TEXT RESULTS PATIENT: HANG EPPERSON LOCATION: CCAT : 65 UNIT #: [id number] AGE: [address]: Mell Gray MD SEX: F ORDER DR: [id number] [facility] [address] [place], [place] [address] [id number] O MR#: [id number] [facility] #: [id number] NAME: HANG EPPERSON : 1965 SEX: F STUDY DATE/TIME: 06/01/2017 7:33 UNIT: CCAT ROOM: STUDY DESCRIPTION: CT Chest W Con Attending Physician: Mell Gray M.D., Ph.D. Referring Physician: Tyler Hampton M.D. Ordering Physician: Mell Gray M.D., Ph.D. Primary Care Physician: Tyler Hampton M.D. MEDICAL IMAGING REPORT This report is preliminary unless electronic signature is present EXAM CT chest, 06/01/2017. HISTORY Neoplasm. Malignant neoplasm of upper lobe right bronchus or lung. Prior appendectomy, tonsillectomy, back surgery, diabetes. Last chemotherapy and radiation 1 week ago. Smoker, 1 pack per day. TECHNIQUE CT chest performed with intravenous administration of 100 mL Isovue-370. This CT exam was performed with one or more of the following radiation dose reduction techniques: automatic exposure control, adjustment of mA and/or kV according to patient size, and iterative reconstruction. COMPARISON 03/07/2017 FINDINGS NOTE: See CT abdomen for full discussion of findings below diaphragm. Thyroid unremarkable. Partially visualized right internal jugular approach port catheter terminating in superior vena cava. No axillary adenopathy. There is an enlarged duy group in the right supraclavicular fossa, measuring 2.5 cm x 1.6 cm, previously 3.5 cm x 2.1 cm. Decreased in overall size. Right paratracheal/mediastinal mass currently measuring 6.4 cm x 3.6 cm x 9 cm, previously 6.9 cm x 3.6 cm x approximately 10 cm. Probably slightly decreased in overall volume. It continues to encase the right main stem bronchus, upper lobe bronchus, and bronchus intermedius. I do not see significant bronchial constriction, though there is some mass effect on the interlobar bronchus. A duy component of the mass in the upper right paratracheal region currently measures about 1.5 cm in short axis, previously 2.2 cm. A subcarinal duy component currently measures approximately 2.7 cm x 1.6 cm, previously 2.9 cm x 2.3 cm. No new STS. [facility] A Service of [facility] RADIOLOGY TEXT RESULTS PATIENT: HANG EPPERSON LOCATION: [facility] : 65 UNIT #: [id number] AGE: [address]: Mell Gray MD SEX: F ORDER DR: mediastinal or hilar node or mass is seen. The mass does exert some mass effect on the superior vena cava. The cava remains patent, and there is no evidence of caval invasion. The heart is normal in size. Trace pericardial fluid unchanged. No pleural effusion. Cirrhotic morphology of liver, stable. No suspicious focal abnormality suggested. Spleen is enlarged, measuring approximately 15-16 cm. Stable. Right adrenal gland unremarkable. Esophagus and visualized stomach unremarkable. Pulmonary parenchyma shows no acute infectious or inflammatory disease. No new parenchymal mass lesion. The vascular structures show normal aortic caliber. The visualized aortic branch vessels are patent. Degenerative changes in the spine. Prominent posterior disc protrusion, T8-T9, with cord contact and some mass effect on cord, stable. No aggressive-appearing bony lesion. IMPRESSION 1. Redemonstration of right mediastinal/paratracheal mass lesion. Currently measuring approximately 3.6 cm x 6.4 cm x 9 cm. Previously measuring about 6.9 cm x 3.6 cm x 10 cm. It does appear to have decreased in overall volume. This would suggest response to treatment. Localized duy components in the right paratracheal and subcarinal regions. It appears to have decreased in size from prior study. See measurements in report. A right supraclavicular duy group has decreased in size. See measurements above. No new adenopathy or mass lesion suggested. 2. No acute pulmonary disease. 3. The above-described mass continues to encase the right mainstem bronchus, upper lobe bronchus and interlobar bronchus. There is some mild mass effect on these structures, but no critical bronchial narrowing. 4. Some mass effect on the superior vena cava. There does not appear to be critical caval narrowing. 5. Cirrhotic morphology of liver, stable. Stable splenomegaly. 6. Stable posterior disc protrusion, T8-T9. Stable mass effect on the spinal cord. No aggressive-appearing bony lesion. Dictated by... Gaetano Feliciano M.D. THIS IS AN ELECTRONICALLY VERIFIED REPORT Gaetano Feliciano M.D. at 06/02/2017 9:39 PM ADRIENNE/judy TD: 06/01/2017 18:15 JOB #: [id number] MEDICAL IMAGING REPORT [facility]. [facility] A Service of [facility] RADIOLOGY TEXT RESULTS PATIENT: HANG EPPERSON LOCATION: [facility] : 65 UNIT #: [id number] AGE: [address]: Mell Gray MD SEX: F ORDER DR: Page 1 of 1 COPY
== END | disposition home or self-care (01) ==
LOC: CCAT 07:03
DX: C34.11 Malignant neoplasm of upper lobe, right bronchus or lung (principal); D64.9 Anemia, unspecified; C79.89 Secondary malignant neoplasm of other specified sites; M51.24 Other intervertebral disc displacement, thoracic region; K80.20 Calculus of gallbladder without cholecystitis without obstruction; K74.60 Unspecified cirrhosis of liver; N20.0 Calculus of kidney; R16.1 Splenomegaly, not elsewhere classified
CPT/HCPCS: 71260; 74160; Q9967

== ENCOUNTER → 2017-07-14 | Outpatient (CLI) | payer OTHER ==
--- NOTE | ~2017-07-14 | CT55 ---
[facility] A Service of [facility] & [facility] RADIOLOGY TEXT RESULTS PATIENT: HANG EPPERSON LOCATION: [facility] : 65 UNIT #: [id number] AGE: [address]: Mell Gray MD SEX: F ORDER DR: [id number] [facility] [address] [place], [place] [address] [id number] O MR#: [id number] Acc #: [id number] NAME: HANG EPPERSON : 1965 SEX: F STUDY DATE/TIME: 07/14/2017 8:43 UNIT: [facility] ROOM: STUDY DESCRIPTION: CT Chest W Con Attending Physician: Mell Gray M.D., Ph.D. Referring Physician: Mell Gray M.D., Ph.D. Ordering Physician: Mell Gray M.D., Ph.D. Primary Care Physician: Tyler Hampton M.D. MEDICAL IMAGING REPORT This report is preliminary unless electronic signature is present EXAM Chest CT with contrast 07/14/2017. INDICATIONS 51-year-old female with malignant neoplasm of the upper lobe. Anemia. Status post chemotherapy and radiation therapy approximately 1 month ago. Epigastric pain. Right-sided chest pain for a week. Observation for suspected malignant neoplasm. Active malignancy. TECHNIQUE Noncontrast CT of the chest was performed. This CT exam was performed with one or more of the following radiation dose reduction techniques: automatic exposure control, adjustment of mA and/or kV according to patient size, and iterative reconstruction. COMPARISON 06/01/[address] CHEST: There is a mass in the suprahilar station on the right. It measures 4.6 x 6.8 cm, previously 2.7 x 6.5 cm. There is adenopathy extending into the right paratracheal station superiorly, measuring up to 16 mm short axis, previously 15 mm. There is encasement of the right mainstem bronchus by the mass and extension into the subcarinal station, where there is a subcarinal duy mass measuring 3.6 x 2.1 cm, previously 2.7 x 1.7 cm. Imaging findings are most characteristic of malignancy until proven otherwise. Included thyroid unremarkable. No new AP window adenopathy. Trace pericardial thickening/fluid unchanged. Aorta demonstrates no aneurysm or dissection. Included upper abdomen demonstrates borderline to mild splenomegaly. The adrenal glands are unremarkable. The pancreas and kidneys are unremarkable with the exception of a nonobstructing 4-mm stone in the left STS. [facility] A Service of [facility] RADIOLOGY TEXT RESULTS PATIENT: HANG EPPERSON LOCATION: [facility] : 65 UNIT #: [id number] AGE: [address]: Mell Gray MD SEX: F ORDER DR: kidney. There is uncomplicated cholelithiasis. Liver demonstrates fatty infiltration and cirrhosis. It is otherwise incompletely evaluated or characterized on this CT designed to evaluate the chest. Lungs demonstrate no new suspicious pulmonary nodule or pleural effusion. There is stable atelectasis or scarring in the upper lobe on the right. Volume averaging of the vessel in the superior segment right lower lobe simulating a nodule is unchanged. Osseous structures demonstrate no new suspicious bone lesion. IMPRESSION 1. The patient's known suprahilar and right paratracheal mass is slightly larger when compared to the prior study. See reference measurements in the body of the report. 2. No new suspicious pulmonary nodule or pleural effusion. 3. Upper abdomen demonstrates uncomplicated cholelithiasis and fatty infiltration of the liver. Nonobstructing left renal stone. Dictated by... Kvng Card M.D. THIS IS AN ELECTRONICALLY VERIFIED REPORT Kvng Card M.D. at 07/17/2017 9:08 AM Concepcion TD: 07/14/2017 19:21 JOB #: [id number] MEDICAL IMAGING REPORT Page 1 of 1 COPY
--- NOTE | ~2017-07-14 | CT5 ---
[facility] A Service of [facility] RADIOLOGY TEXT RESULTS PATIENT: HANG EPPERSON [id number] 65 UNIT #: [id number] AGE: [address]: Mell Gray MD SEX: F ORDER DR: [id number] [facility] [address] [place], [place] [address] [id number] O MR#: [id number] Acc #: [id number] NAME: HANG EPPERSON : 1965 SEX: F STUDY DATE/TIME: 07/14/2017 8:07 UNIT: [facility] ROOM: STUDY DESCRIPTION: CT Abdomen W Cont Attending Physician: Mell Gray M.D., Ph.D. Referring Physician: Mell Gray M.D., Ph.D. Ordering Physician: Mell Gray M.D., Ph.D. Primary Care Physician: Tyler Hampton M.D. MEDICAL IMAGING REPORT This report is preliminary unless electronic signature is present EXAM CT abdomen with contrast. INDICATION Restaging lung cancer. Observation for metastatic disease. Patient reports epigastric abdominal pain off and on for the past several months. PROCEDURE Contrast-enhanced CT of the abdomen. This CT exam was performed with one or more of the following radiation dose reduction techniques: automatic exposure control, adjustment of mA and/or kV according to patient size, and iterative reconstruction. COMPARISON 06/01/2017 FINDINGS ABDOMEN WITH CONTRAST: Refer to the separately dictated CT of the chest for thoracic findings. Cirrhotic morphology of the liver, presumed hepatic steatosis. Spleen measures 16.4 cm. Tiny nonobstructing calculus in the left kidney. There are multiple small stones layering dependently in the gallbladder with no CT evidence for active inflammation. The adrenal glands and pancreas are unremarkable. No aggressive appearing bone lesions. IMPRESSION 1. Cirrhosis, with splenomegaly. 2. No evidence for metastatic disease in the abdomen. 3. Uncomplicated cholelithiasis. [facility] A Service of [facility] RADIOLOGY TEXT RESULTS PATIENT: HANG EPPERSON LOCATION: [facility] : 65 UNIT #: [id number] AGE: [address]: Mell Gray MD SEX: F ORDER DR: 4. Not mentioned above, previously demonstrated hypermetabolic nodule right periaortic station measures 1.6 cm, previously 1.2 cm. No other enlarged abdominal lymph nodes are seen. The patient's known right rectus sheath metastasis measures 1.3 cm and is not significantly changed. Recommend attention to these on followup studies. Dictated by... Reji Polk M.D. THIS IS AN ELECTRONICALLY VERIFIED REPORT Reji Polk M.D. at 07/17/2017 8:50 AM SHWETAD/jean TD: 07/14/2017 14:13 JOB #: [id number] MEDICAL IMAGING REPORT Page 1 of 1 COPY
[2017-07-14 10:21] LABS: POC - GFR >60.0 mL/min (>60)
== END | disposition home or self-care (01) ==
LOC: CCAT 08:01
PROVIDERS: Internal Medicine Hematology & Oncology
DX: C34.11 Malignant neoplasm of upper lobe, right bronchus or lung (principal); D64.9 Anemia, unspecified; K74.60 Unspecified cirrhosis of liver; R16.1 Splenomegaly, not elsewhere classified; K80.20 Calculus of gallbladder without cholecystitis without obstruction; R59.0 Localized enlarged lymph nodes; K76.0 Fatty (change of) liver, not elsewhere classified; N20.0 Calculus of kidney
CPT/HCPCS: 71260; 74160; 82565; Q9967